=== PATIENT | female | born 1970 | race Caucasian/White ===

== ENCOUNTER 2018-12-17 08:28 | Emergency (ER) | payer MEDICAID, OTHER ==
[~2018-12-17] VITALS: Ht 167.6 cm; Wt 77.8 kg
[2018-12-17] MEDS ORDERED: OMEP40CA2 PO (08:46)
[2018-12-17] MEDS ORDERED: PAXI40TA10 PO (08:46)
[2018-12-17] MEDS ORDERED: PROP60TA14 PO (09:15)
[2018-12-17] MEDS ORDERED: VENTAER INH (09:15)
[2018-12-17] MEDS ORDERED: VITA50TA47 PO (09:15)
[2018-12-17] MEDS ORDERED: FOLI1TAB11 PO (09:15)
[2018-12-17] MEDS ORDERED: FERR32TA PO (09:15)
[2018-12-17] MEDS ORDERED: AMLO2.5T3 PO (09:15)
[2018-12-17] MEDS ORDERED: INCR1INH INH (09:15)
[2018-12-17] MEDS ORDERED: KLOR1CAP2 PO (09:15)
[2018-12-17] MEDS ORDERED: CLIN150C14 PO (09:15)
[2018-12-17] MEDS ORDERED: BREO1INH3 INH (09:15)
--- NOTE | 2018-12-17 09:35 | REP ---
Noncontrast brain CT: History: Seizure. Findings: Digital lateral storage management architect view is unremarkable. Bone window settings demonstrate an intact bony calvarium. Visualized paranasal sinuses are clear. No intraorbital abnormality is appreciated. There is mild diffuse cerebral atrophy. Paez-white differentiation pattern is normal. There is no evidence of intracranial hemorrhage. No extra-axial fluid collection is seen. No mass, infarct, or midline shift is seen. Impression: Mild diffuse atrophy. Otherwise negative noncontrast head CT. Electronically Signed by Ronni Thakkar MD 12/17/2018 09:27 A
[2018-12-17 09:40] LABS: BASO # 0.1 10^3/uL (0.0-0.2); BASO % 0.3 % (0.0-1.0); EOS % 0.1 % (0.0-3.0); HEMOGLOBIN 10.2 g/dl (12.0-15.5); LYMPH # 1.8 10^3/uL (1.5-4.5); LYMPH % 9.4 % (24.0-44.0); MEAN CORPUSCULAR HEMOGLOBIN 27.1 pg (27.0-33.0); MEAN CORPUSCULAR HGB CONC 30.9 g/dl (32.0-36.5); MEAN CORPUSCULAR VOLUME 87.8 fl (80.0-96.0); MONO % 5.3 % (0.0-5.0); NEUTROPHILS % 83.9 % (36.0-66.0); PLATELET COUNT, AUTOMATED 541 10^3/uL (150-450); RED BLOOD COUNT 3.76 10^6/uL (4.00-5.40)
[2018-12-17] MEDS ORDERED: levETIRAcetam INJection 1,000 MG in D5W 100 ML IV ONE (10:00)
[2018-12-17 10:07] LABS: BLOOD UREA NITROGEN 4 MG/DL (7-18); CALCIUM LEVEL 7.5 MG/DL (8.5-10.1); CARBON DIOXIDE LEVEL 31 MEQ/L (21-32); CHLORIDE LEVEL 94 MEQ/L (98-107); CREATININE FOR GFR 0.46 MG/DL (0.55-1.30); GLOMERULAR FILTRATION RATE > 60.0 (>58); GLUCOSE, FASTING 86 MG/DL (70-100); POTASSIUM SERUM 2.6 MEQ/L (3.5-5.1); SODIUM LEVEL 137 MEQ/L (136-145)
[2018-12-17] MEDS ORDERED: POTASSIUM CHLORIDE 10 MEQ SR TABLET PO ONE (10:30)
[2018-12-17] MEDS: CALCIUM CHLORIDE 10% 1 GM in D5W 100 ML IV ONE ×2 (10:30→10:50)
[2018-12-17 13:10] VITALS: BP 103/59
== END 2018-12-17 13:15 | disposition short-term general hospital (02) ==
LOC: M ED 08:28
DX: R56.9 Unspecified convulsions (principal); N63.20 Unspecified lump in the left breast, unspecified quadrant; Z79.899 Other long term (current) drug therapy; Z79.2 Long term (current) use of antibiotics; Z79.51 Long term (current) use of inhaled steroids
CPT/HCPCS: 36415; 70450; 80048; 85025; 86850; 86900; 86901; 96365; 99285; J1953

== ENCOUNTER → 2019-04-17 | Outpatient (CLI) | payer OTHER ==
[~2019-04-17] MED LIST: AMLO2.5T3 PO; BREO1INH3 INH; CLIN150C14 PO; FERR32TA PO; FOLI1TAB11 PO; INCR1INH INH; KLOR1CAP2 PO; OMEP40CA2 PO; PAXI40TA10 PO; PROP60TA14 PO; VENTAER INH; VITA50TA47 PO
[2019-04-17 11:59] LABS: HEMATOCRIT 36.1 % (36.0-47.0); HEMOGLOBIN 11.2 g/dl (12.0-15.5); MEAN CORPUSCULAR HEMOGLOBIN 28.9 pg (27.0-33.0); PLATELET COUNT, AUTOMATED 257 10^3/uL (150-450); RED BLOOD COUNT 3.88 10^6/uL (4.00-5.40); WHITE BLOOD COUNT 3.3 10^3/uL (4.0-10.0)
[2019-04-17 12:16] LABS: EOSINOPHILS 24 % (0-5); LYMPHOCYTES 50 % (16-52); MONOCYTES 7 % (0-8); NEUTROPHILS 19 % (35-75)
[2019-04-17 12:18] LABS: PLATELET ESTIMATE NORMAL (NORMAL)
[2019-04-17 12:22] LABS: ALBUMIN 3.3 GM/DL (3.2-5.2); ALT/SGPT 11 U/L (12-78); BILIRUBIN,TOTAL 0.3 MG/DL (0.2-1.0); BLOOD UREA NITROGEN 8 MG/DL (7-18); CALCIUM LEVEL 9.3 MG/DL (8.5-10.1); CARBON DIOXIDE LEVEL 32 MEQ/L (21-32); CHLORIDE LEVEL 103 MEQ/L (98-107); CREATININE FOR GFR 0.74 MG/DL (0.55-1.30); GLOMERULAR FILTRATION RATE > 60.0 (>58); GLUCOSE, FASTING 79 MG/DL (70-100); POTASSIUM SERUM 4.1 MEQ/L (3.5-5.1); SODIUM LEVEL 141 MEQ/L (136-145); TOTAL PROTEIN 6.7 GM/DL (6.4-8.2)
== END ==
LOC: M LAB 10:53
PROVIDERS: ATTEND Internal Medicine Medical Oncology
DX: C50.812 Malignant neoplasm of overlapping sites of left female breast (principal); Z17.1 Estrogen receptor negative status [ER-]

== ENCOUNTER → 2019-05-08 | Outpatient (CLI) | payer OTHER ==
[2019-05-08 12:13] LABS: BASO % 0.3 % (0.0-1.0); EOS # 0.5 10^3/uL (0.0-0.50); EOS % 5.5 % (0.0-3.0); HEMOGLOBIN 12.5 g/dl (12.0-15.5); LYMPH # 1.5 10^3/uL (1.5-4.5); LYMPH % 15.4 % (24.0-44.0); MEAN CORPUSCULAR HEMOGLOBIN 29.7 pg (27.0-33.0); MEAN CORPUSCULAR HGB CONC 30.5 g/dl (32.0-36.5); MEAN CORPUSCULAR VOLUME 97.4 fl (80.0-96.0); MONO # 0.3 10^3/uL (0.0-0.8); MONO % 2.8 % (0.0-5.0); NEUTROPHILS # 7.1 10^3/uL (1.8-7.7); NEUTROPHILS % 75.5 % (36.0-66.0); PLATELET COUNT, AUTOMATED 178 10^3/uL (150-450); RED BLOOD COUNT 4.21 10^6/uL (4.00-5.40); WHITE BLOOD COUNT 9.5 10^3/uL (4.0-10.0)
[2019-05-08 12:37] LABS: ALBUMIN 3.5 GM/DL (3.2-5.2); ALT/SGPT 21 U/L (12-78); BILIRUBIN,TOTAL 0.3 MG/DL (0.2-1.0); BLOOD UREA NITROGEN 11 MG/DL (7-18); CARBON DIOXIDE LEVEL 30 MEQ/L (21-32); CHLORIDE LEVEL 105 MEQ/L (98-107); GLOMERULAR FILTRATION RATE > 60.0 (>58); GLUCOSE, FASTING 73 MG/DL (70-100); POTASSIUM SERUM 3.6 MEQ/L (3.5-5.1); SODIUM LEVEL 142 MEQ/L (136-145); TOTAL PROTEIN 6.8 GM/DL (6.4-8.2)
== END ==
LOC: M LAB 10:50
PROVIDERS: ATTEND Internal Medicine Medical Oncology
DX: C50.812 Malignant neoplasm of overlapping sites of left female breast (principal); Z17.1 Estrogen receptor negative status [ER-]

== ENCOUNTER → 2019-05-22 | Outpatient (CLI) | payer OTHER ==
[2019-05-22 11:38] LABS: BASO % 0.4 % (0.0-1.0); EOS # 0.3 10^3/uL (0.0-0.50); EOS % 3.4 % (0.0-3.0); LYMPH # 1.3 10^3/uL (1.5-4.5); MEAN CORPUSCULAR HEMOGLOBIN 30.6 pg (27.0-33.0); MEAN CORPUSCULAR HGB CONC 31.6 g/dl (32.0-36.5); MEAN CORPUSCULAR VOLUME 96.9 fl (80.0-96.0); MONO # 0.4 10^3/uL (0.0-0.8); MONO % 3.9 % (0.0-5.0); NEUTROPHILS # 7.2 10^3/uL (1.8-7.7); NEUTROPHILS % 76.7 % (36.0-66.0); PLATELET COUNT, AUTOMATED 202 10^3/uL (150-450); RED BLOOD COUNT 3.92 10^6/uL (4.00-5.40); WHITE BLOOD COUNT 9.4 10^3/uL (4.0-10.0)
[2019-05-22 12:08] LABS: ALBUMIN 3.4 GM/DL (3.2-5.2); ALT/SGPT 20 U/L (12-78); BILIRUBIN,TOTAL 0.2 MG/DL (0.2-1.0); BLOOD UREA NITROGEN 11 MG/DL (7-18); CALCIUM LEVEL 8.4 MG/DL (8.5-10.1); CARBON DIOXIDE LEVEL 29 MEQ/L (21-32); CHLORIDE LEVEL 107 MEQ/L (98-107); CREATININE FOR GFR 0.68 MG/DL (0.55-1.30); GLOMERULAR FILTRATION RATE > 60.0 (>58); GLUCOSE, FASTING 103 MG/DL (70-100); POTASSIUM SERUM 3.4 MEQ/L (3.5-5.1); SODIUM LEVEL 142 MEQ/L (136-145); TOTAL PROTEIN 6.3 GM/DL (6.4-8.2)
== END ==
LOC: M LAB 10:59
PROVIDERS: ATTEND Internal Medicine Medical Oncology
DX: C50.812 Malignant neoplasm of overlapping sites of left female breast (principal); Z17.1 Estrogen receptor negative status [ER-]

== ENCOUNTER → 2019-07-11 | Outpatient (CLI) | payer OTHER ==
[~2019-07-11] MED LIST changes: +E-Z-GAS II EFFERVESCENT PACKET (SODIUM BICARB./CITRIC ACID/SIMETHICONE) As Ordered ONE; +E-Z-HD 98% w/w 340GM SUSP BTL As Ordered ONE; +E-Z-PAQUE 96% w/w SUSP 176GM BTL As Ordered ONE
--- NOTE | 2019-07-11 16:44 | REP ---
Upper GI Air Contrast with SBFT The procedure was performed by BRENDA Mercer, under the the direct supervision of Dr. Smiley. The images were reviewed with Dr. Smiley. The tack driller film shows no organomegaly or pathological masses. The intestinal gas pattern appears normal. Liquid barium and gas producing crystals were given in the erect position as well as liquid barium in the prone position in order to perform a double contrast upper GI examination. The oral and pharyngeal stages of deglutition were unremarkable. Esophageal transport is efficient and there is no esophagitis, stricture, or mucosal ring noted. There is no hiatal hernia. A small amount of gastroesophageal reflux was observed during the exam. The stomach morris are normally outlined. The rugal folds are smooth and regular. There is no gastritis, neoplasm, or ulcer disease noted. The duodenal morris are normally outlined. The mucosal folds are smooth and regular. There is no duodenitis, peptic ulcer disease, or neoplasm noted. The visualized portion of the proximal small bowel appears normal in course and caliber. The barium column was followed through the small bowel to the level of the terminal ileum. Small bowel transit time was approximately 40 minutes. During fluoroscopy gentle palpation shows all loops are freely mobile and pliable. There are no fixed or angulated loops. The small bowel mucosal pattern is normal in course and caliber. There is no transition to set suggest a partial small-bowel obstruction. Spot filming of the terminal ileum shows it to be unremarkable. Impression: 1. Unremarkable upper GI and small-bowel follow-through. 0.9 minutes of fluoroscopy time was utilized for this procedure. Some fluoroscopic images are performed with last image hold technology. These images require no additional radiation. Reviewed by BRENDA Sepulveda 07/11/2019 04:27 P Electronically Signed by Jose Smiley DO 07/11/2019 04:36 P
== END ==
LOC: M RAD 07:31
PROVIDERS: ATTEND Physician Assistant Medical
DX: K21.9 Gastro-esophageal reflux disease without esophagitis (principal)

== ENCOUNTER → 2019-07-22 | Outpatient (CLI) | payer OTHER ==
[~2019-07-22] MED LIST changes: +B-12100T2 PO; -E-Z-GAS II EFFERVESCENT PACKET (SODIUM BICARB./CITRIC ACID/SIMETHICONE) As Ordered ONE; -E-Z-HD 98% w/w 340GM SUSP BTL As Ordered ONE; -E-Z-PAQUE 96% w/w SUSP 176GM BTL As Ordered ONE; +LEVE750T5 PO; +PROP10TA56 PO; +STIO1AER INH
--- NOTE | 2019-07-29 11:31 | RADONC ---
RADIATION ONCOLOGY CONSULTATION NOTE DATE: 07/22/2019 CHART NUMBER: [id number] DIAGNOSIS: Left breast cancer pathologic. STAGE: IIIA, pT3, pN0, cM0, grade 3, ER negative, OR negative, HER2 negative. ECOG PERFORMANCE STATUS: 0 CONSULTATION NOTE: Ms. Mcdonald is a very pleasant 49-year-old white female with the diagnosis of what appears to be a pathologic stage IIIA, pT3, pN0, cM0, grade 3, ER negative, OR negative, HER2 negative infiltrating ductal carcinoma of the left breast who is presenting to us today status post left modified radical mastectomy as well as systemic therapy consisting of doxorubicin and cyclophosphamide x4 then paclitaxel times 12 for consideration of postoperative radiation therapy in attempt to increase the likelihood of achieving local control and cure. HISTORY OF PRESENT ILLNESS: The patient reports that after a long period of time with multiple surgeries, her and she became quite depressed. Apparently she noted a large mass in her left breast for quite some time. Eventually her family came in to intervene and brought her to seek medical attention. In October 2018, she was seen at [facility] and was found to be severely anemic. She required blood transfusions. A large breast mass was noted. The breast cyst was drained twice and cytology revealed atypical cells. She was subsequently sent for various scans for staging and it was thought that there was involvement of the pectoralis major muscle and possibly a solid component of the cyst along the chest wall. On 12/03/2018, she underwent imaging at [facility] and a large complex solid and cystic mass in the left breast along with left axillary lymph nodes with thickening was noted. She was seen by Dr. Alexandra. At this point, pathology revealed an invasive ductal carcinoma, poorly differentiated which was ER negative, OR negative and HER2 negative. PD-L1 expression was 10%. On 12/17/2018, the patient had seizure like activities and was seen in the emergency department at [facility] where a CT scan showed no evidence of metastatic disease. The patient was treated with Keppra. Subsequent MRIs and EEGs were done and were negative. On 12/23/2018, she underwent left radical mastectomy and lymph node biopsy. Pathology revealed a 23 cm x 22 cm x 13 cm invasive carcinoma with a pleomorphic variant. The tumor was poorly differentiated and was estrogen receptor, progesterone receptor and HER2 negative. It was positive for lymph vascular invasion. All lymph nodes were negative for malignancy and the margins were negative. The patient was subsequently seen by medical oncology and underwent four cycles of Adriamycin and Cytoxan. This was followed by weekly Taxol which was completed on 05/23/2019. She is now presenting to me for consideration of external beam radiation therapy to her chest wall lymph node drainage sites in order to increase the likelihood of obtaining local control. ALLERGIES: The patient has NO KNOWN DRUG ALLERGIES. PAST MEDICAL HISTORY: The patient's past medical history is positive for anxiety, asthma, COPD, hypertension, seizure as noted above as well as anemia as noted above. She is status post tubal ligation. FAMILY HISTORY: The patient's family history is positive for maternal aunt with cancer as well as a maternal uncle with some type of cancer. SOCIAL HISTORY: The patient had smoked one pack of cigarettes per day for 32 years. She drinks alcohol socially. REVIEW OF SYSTEMS: The patient's review of systems is noncontributory. She denies nausea, vomiting, fevers, chills, night sweats, diplopia, headaches, anxiety or depression, anorexia, weight loss, visual disturbances, chest pain, urinary or bowel difficulties, bone pain, or neurological problems. PHYSICAL EXAMINATION: The patient is a well-developed, well-nourished female in no acute distress. HEENT exam is normocephalic, atraumatic. Extraocular movements are intact. There is no palpable cervical, supraclavicular, infraclavicular, axillary, or inguinal lymphadenopathy present. Lungs are clear to auscultation and percussion. Heart has a regular rate and rhythm. Abdomen is benign with no hepatosplenomegaly, masses, or tenderness. Breast examination reveals a right breast which is free of masses or discharge. Her left chest wall is free of nodularity, ulceration, or evidence of recurrent or residual disease. Skeletal examination reveals no tenderness to pressure or percussion of the bony skeleton. Extremities reveal no clubbing, cyanosis, or edema. Neurologic exam is grossly intact, as is the remainder of the physical examination. ASSESSMENT: Clearly the patient is a candidate for external beam radiation therapy and I have so informed her. I have discussed with the patient in detail the potential benefits as well as possible acute and chronic sequelae of external beam radiation therapy. We have discussed logistics of treatment planning, simulation and subsequent fractionated daily radiation treatments. I have scheduled the patient for the next available simulation slot and radiation treatments will begin subsequently. Thank you for allowing us to participate in the care of this very pleasant woman. If I could be of any further assistance or provide you with any information, please feel free to contact me at anytime. As always, warm regards, Ron Barth cc: MD Rody Perez MD Sheila Lemke, MD
== END ==
LOC: M ONCR 12:27
PROVIDERS: ATTEND Radiology Radiation Oncology
DX: C50.912 Malignant neoplasm of unspecified site of left female breast (principal); Z90.12 Acquired absence of left breast and nipple

== ENCOUNTER → 2019-08-25 | Outpatient (RCR) | payer OTHER ==
--- NOTE | 2019-07-31 11:08 | RADONC ---
RADIATION ONCOLOGY SIMULATION NOTE DATE: 07/30/2019 CHART NUMBER: [id number] Left breast cancer. SIMULATION NOTE: The patient was placed in a supine position and an immobilization device was constructed to enable the patient to remain still during her treatments and thusly ensure accuracy of day-to-day treatments. 3 mm images were taken through the thorax for future contouring of the left breast and general contours to aid in dosimetry and the treatment planning process. The patient tolerated this process well with no significant untoward side effects. I was present during the entire simulation process. After the simulation was complete, the patient was discharged to home and we will be working on her treatment plan.
--- NOTE | 2019-08-13 13:06 | RADONC ---
RADIATION ONCOLOGY PROGRESS NOTE DATE: 08/11/2019 CHART #: [id number] Ms. Mcdonald underwent her first fraction of radiation today to her left chest wall for a dose of 180 cGy. It was tolerated without difficulty or discomfort. The patient's physical exam remains unchanged with clearly no radiation change present since this was her first fraction. Ms. Mcdonald tolerated treatments well and will continue with radiation as scheduled.
--- NOTE | 2019-08-19 16:30 | RADONC ---
RADIATION ONCOLOGY PROGRESS NOTE DATE: CHART NUMBER: [id number] PROGRESS NOTE: Ms. Cooper is presently at a dose of 900 cGy to her left chest wall and is tolerating treatments quite well at this point with no complaints related to her radiation therapy. She is having no chest wall or bone pain. REVIEW OF SYSTEMS: The patient's review of systems is noncontributory. Denies nausea, vomiting, fevers, chills, night sweats, diplopia, headaches, anxiety or depression, anorexia, weight loss, visual disturbances, chest pain, urinary or bowel difficulties, bone pain, or neurological problems. PHYSICAL EXAMINATION: The patient's skin is in good condition with no evidence of moist or dry desquamation. The remainder of physical exam remains unchanged. The patient is tolerating treatments quite well and radiation will continue as scheduled.
--- NOTE | 2019-08-26 08:14 | RADONC ---
RADIATION ONCOLOGY PROGRESS NOTE DATE: 08/25/2019 CHART #: [id number] Ms. Mcdonald is presently at a dose of 1800 cGy to her left breast and is tolerating treatments quite well at this point with no complaints related to her radiation therapy. She is having no breast or bone pain. REVIEW OF SYSTEMS: The patient's review of systems is noncontributory. Denies nausea, vomiting, fevers, chills, night sweats, diplopia, headaches, anxiety or depression, anorexia, weight loss, visual disturbances, chest pain, urinary or bowel difficulties, bone pain, or neurological problems. PHYSICAL EXAMINATION: The patient's skin is in good condition with no evidence of moist or dry desquamation. The remainder of her physical exam remains unchanged. Ms. Mcdonald is tolerating treatments without difficulty and radiation will continue as scheduled.
== END ==
LOC: M ONCR 07-30 13:21
PROVIDERS: ATTEND Radiology Radiation Oncology
DX: C50.812 Malignant neoplasm of overlapping sites of left female breast (principal)

== ENCOUNTER → 2019-09-25 | Outpatient (RCR) | payer OTHER ==
--- NOTE | 2019-09-02 11:18 | RADONC ---
RADIATION ONCOLOGY PROGRESS NOTE DATE: 09/01/2019 CHART #: [id number] Ms. Mcdonald is presently at a dose of 2700 cGy to her left chest wall and is tolerating treatments quite well at this point with no complaints related to her radiation therapy. She is having no skin or bone pain. REVIEW OF SYSTEMS: The patient's review of systems is noncontributory. Denies nausea, vomiting, fevers, chills, night sweats, diplopia, headaches, anxiety or depression, anorexia, weight loss, visual disturbances, chest pain, urinary or bowel difficulties, bone pain, or neurological problems. PHYSICAL EXAMINATION: The patient's skin is in good condition with no evidence of moist desquamation present. The remainder of her physical exam remains unchanged. Ms. Mcdonald is tolerating treatments quite well and radiation will continue as scheduled.
--- NOTE | 2019-09-08 14:50 | RADONC ---
RADIATION ONCOLOGY PROGRESS NOTE DATE: 09/08/2019 CHART NUMBER: [id number] Ms. Mcdonald is presently a dose of 3600 cGy to her left chest wall and is tolerating treatments quite well at this point with no complaints related to her radiation therapy other than some itchiness of the skin. The patient's review of systems is positive for skin itchiness but is otherwise noncontributory. Denies nausea, vomiting, fevers, chills, night sweats, diplopia, headaches, anxiety or depression, anorexia, weight loss, visual disturbances, chest pain, urinary or bowel difficulties, bone pain, or neurological problems. PHYSICAL EXAMINATION: The patient's skin shows some erythema and tanning present but overall is in good condition with no evidence of moist or dry desquamation. The remainder of her physical exam remains unchanged. Ms. Mcdonald is tolerating treatments quite well and radiation will continue as scheduled.
--- NOTE | 2019-09-16 08:27 | RADONC ---
RADIATION ONCOLOGY PROGRESS NOTE DATE: 09/15/2019 CHART NUMBER: [id number] PROGRESS NOTE: Mrs. Cooper with a diagnosis of malignant neoplasm involving the left breast is currently receiving adjuvant radiotherapy. She is currently at a dose of 4500 cGy of an anticipated 48 cGy. She may receive a boost to the lumpectomy area. She has no complaints referable to her disease at this time or to her treatments. REVIEW OF SYSTEMS: She specifically denies any nausea, vomiting, coughing, sputum production or hemoptysis. Her energy level is excellent. She is able to maintain most day-to-day activities without any alteration of her lifestyle. She was complaining of itching of the skin but she has been using some hydrocortisone cream with some positive effects. The remainder of the review of systems is unchanged. EXAMINATION FINDINGS: The patient has a brisk erythematous reaction within the irradiated volume but no evidence of focal desquamation. There is no palpable peripheral lymphadenopathy. Lungs are clear. Heart: Regular without murmurs. The remainder of the physical examination is unchanged. IMPRESSION: Tolerating therapy well with minimal to moderate skin irritation presently using hydrocortisone cream with positive effects. PLAN: Treatments to continue. MTDD
--- NOTE | 2019-09-23 06:37 | RADONC ---
RADIATION ONCOLOGY PROGRESS NOTE DATE: 09/22/2019 CHART #: [id number] Ms. Mcdonald is presently at a dose of 4760 cGy to her left chest wall scar and is tolerating treatments quite well at this point with no significant difficulties related to her radiation therapy other than some skin discomfort. PHYSICAL EXAMINATION: The patient's skin shows erythema and tanning present. The remainder of her physical exam remains unchanged. Ms. Mcdonald is tolerating her treatments quite well and radiation will continue as scheduled. I have sent in a prescription for Silvadene to be applied topically to her chest wall.
[~2019-09-25] MED LIST changes: -OMEP40CA2 PO; +OMEP40CA97 PO; +SILV40CR EXT
--- NOTE | 2019-09-27 09:06 | RADONC ---
RADIATION ONCOLOGY TREATMENT SUMMARY DATE: 09/25/2019 CHART NUMBER: [id number] DIAGNOSIS: Left breast cancer. STAGE: III A, pT3, pN0, cM0, grade 3, ER positive, ND positive, HER2/cornelio negative. ECOG PERFORMANCE STATUS: 0 TREATMENT SUMMARY: Ms. Manley is a very pleasant, 49-year-old white female with the diagnosis of what appears to be a pathologic stage III A, pT3, pN0, cM0, grade 3, ER positive, ND positive, HER2/cornelio negative infiltrating ductal carcinoma of the left breast who presented to us status post left modified radical mastectomy as well as systemic therapy consisting of doxorubicin and cyclophosphamide x4, then paclitaxel x 12 for consideration of postoperative radiation therapy in attempt to achieve local control. We treated the patient to her left chest wall for a dose of 4680 cGy delivered in 27 fractions of 180 cGy each over 38 elapsed days from 08/11/2019 to 09/18/2019. The patient's left chest wall was treated on a linear accelerator utilizing a combination of 6 X and 10 X photon beams via medial and lateral tangential palomo with 3-D conformal treatment planning. He is following completion of 4860 cGy to the entire left chest wall. The primary site was boosted for an additional 900 cGy delivered in 5 fractions of 180 cGy each over six elapsed days from 09/19/2019 through 09/25/2019. The primary site boost was treated on a linear accelerator utilizing a 9 MeV electron beam prescribed to the 90% isodose line via non phos technique. This brought the primary site to a total dose of 5760 cGy delivered in 32 treatments over 44 elapsed days from 08/11/2019 through 09/25/2019. 1/2 cm of tissue equivalent bolus was placed over the chest wall as initial photon palomo. In addition, we treated the patient's lymph node drainage sites for a dose of 4860 cGy delivered in 27 fractions of 180 cGy each over 38 elapsed days also from 09/10/2019 through 09/18/2019. Ms. Manley tolerated her treatments quite well and was able complete therapy as prescribed without interruption. I have scheduled the patient to see me again in 1 month for further followup. She will also continue to be followed by her other physicians as well. cc: MD Rody Perez MD Sheila Lemke, MD
== END ==
LOC: M ONCR 08-26 12:29
PROVIDERS: ATTEND Radiology Radiation Oncology
DX: C50.812 Malignant neoplasm of overlapping sites of left female breast (principal)